=== PATIENT | male | born 1990 | race African-American/Black ===

== ENCOUNTER 2016-06-15 10:14 | Emergency (ER) | payer OTHER ==
[~2016-06-15] VITALS: Ht 177.8 cm; Wt 102.1 kg
[2016-06-15] MEDS ORDERED: MEDROL4 M2 PO (11:25)
[2016-06-15] MEDS ORDERED: ROBAXIN500 M1 PO (11:25)
--- NOTE | 2016-06-15 11:25 | ED NECK/BACK PAIN COMPLAINT ---
History of Present Illness General Chief Complaint: Low Back Pain/Injury Stated Complaint: LOWER BACK PAIN Source: patient Exam Limitations: no limitations Vital Signs & Intake/Output Vital Signs & Intake/Output Vital Signs Date Time Temp Pulse Resp B/P Pulse O2 O2 Flow FiO2 Ox Delivery Rate 06/15 1021 98.0 98 20 180/140 97 Room Air Allergies Coded Allergies: No Known Allergies (06/15/16) Reconcile Medications Methocarbamol (Robaxin) 500 MG TABLET 1 TAB PO TID PRN muscle spasms Methylprednisolone. (Medrol) 4 MG TAB.DS.PK 1 DP PO AD back pain, inflammation 6 on day 1 then reduce by one tablet daily until gone Triage Note: PT TO ED C/O RIGHT LOWER BACK PAIN X 2 MONTHS. WORSE RECENTLY, RADIATING "TO MY SPINE". WORSE AT NIGHT. HAS NOT TRIED OTC MEDS. DENIES ANY INJURY. Triage Nurses Notes Reviewed? yes Onset: Gradual Duration: 2 months Timing: recent history Quality/Severity: moderate Location: lumbar spine, paraspinous muscles Radiation: right hip Context: unknown Method of Injury: unknown Loss of Consciousness: no loss of consciousness Modifying Factors: movement HPI: Patient is a 26-year-old male presenting to the emergency Department chief complaint of right low back pain mostly going on for the past 2 months. Pain is achy throbbing and spasming in nature. Currently moderate. Worse at nighttime. Denies any trauma or falls. No recent heavy lifting. Pain occasionally radiates into the right hip area. Denies any urinary incontinence or retention. No numbness or tingling. Denies any lower extremity weakness. Denies any hematuria. No history kidney stones. Denies nausea vomiting fevers or chills chest pain or shortness of breath. No change in weight. Denies abdominal pain. Past History Travel History Traveled to [place] past 21 day No Medical History Any Pertinent Medical History? see below for history Cardiovascular: hypertension Surgical History Surgical History: non-contributory Psychosocial History What is your primary language Maltese Tobacco Use: Quit <30 days ago ETOH Use: heavy use Illicit Drug Use: denies illicit drug use Family History Hx Contributory? No Review of Systems Review of Systems Constitutional: Reports: no symptoms. Comments Review of systems: See HPI, All other systems negative. Constitutional, no chills fever or weight loss HEENT: No visual changes no sore throat no congestion Cardiovascular: No chest pain ,palpitation Skin, no jaundice no rashes Respiratory: No dyspnea cough sputum or hemoptysis GI: No nausea no vomiting : No dysuria No hematuria Muscle skeletal: no neck pain, Neurologic: No numbness no [place] Psych: No stress anxiety or depression,. Heme/endocrine: No bruising no bleeding no polyuria or polydipsia Immunology: No splenectomy or history of AIDS Physical Exam Physical Exam General Appearance: well developed/nourished, no apparent distress, alert, awake , comfortable Neck: normal inspection, supple, full range of motion, normal alignment Comments: Well-developed well-nourished person in no acute distress HEENT: Pupils equally round and reactive to light and accommodation. Nose is atraumatic. Neck: Supple, no lymphadenopathy, normal range of motion without pain or tenderness, no C-spine tenderness. Back: Tender to palpation over the right sacroiliac joint, mild muscle spasm present. Negative straight leg raise bilaterally. Full range of motion. Cardiovascular: Regular rate and rhythms no murmurs rubs or gallops, normal JVP Respiratory: Chest nontender. No respiratory distress.breath sounds clear to auscultation bilaterally Extremity: No edema, no calf tenderness to palpation, distal pulses are 2+ bilaterally. Full range of motion of lower extremity is without difficulty or pain. Muscular strength is 5 out of 5 in upper and lower bilaterally. Neuro: Alert oriented x3, motor sensory normal, patellar reflexes are 2+ bilaterally. Skin: No appreciable rash on exposed skin, skin is warm and dry. Psych: Mood and affect is normal, memory and judgment is normal. Progress Differential Diagnosis: cauda equina syn, herniated disc, myofascial strain, sciatica, T/L spine injury Plan of Care: No bony tenderness to palpation throughout entire spine. Patient reports symptoms have been going on for the past 2 months. Likely muscle strain, considering sacroiliitis or potentially some type of nerve pain that radiates into the hip. Patient will be treated symptomatically with Medrol dose pack and Flexeril. He was given orthopedics to follow up with if symptoms persist. No signs of cauda equina. Neuro- vascularly intact. Comments: Declines pain medication here in the emergency department. 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 Departure Departure Time of Disposition: 1122 Disposition: HOME OR SELF CARE Condition: Stable Clinical Impression Primary Impression: Back strain Qualifiers: Encounter type: initial encounter Qualified Code: S39.012A - Strain of muscle, fascia and tendon of lower back, initial encounter Referrals: [facility] PATIENT HAS NO PRIMARY CARE DR (PCP/Family) FRAN WORTHINGTON,ARCADIO Talley Additional Instructions: Follow-up with your primary care physician also follow up with orthopedics if symptoms persist. Use Medrol Dosepak as prescribed to help with inflammation, take Flexeril as prescribed at nighttime to help with muscle spasms. Avoid heavy lifting. Return for worsening symptoms or concerns. Try to reduce or quit smoking and drinking. Departure Forms: Customer Survey General Discharge Information Prescriptions: Current Visit Scripts Methocarbamol (Robaxin) 1 TAB PO TID PRN muscle spasms #20 TAB Methylprednisolone. (Medrol) 1 DP PO AD #1 DP 6 on day 1 then reduce by one tablet daily until gone
== END 2016-06-15 11:33 ==
LOC: ERH 10:14
DX: S39.012A Strain of muscle, fascia and tendon of lower back, initial encounter (principal); X58.XXXA Exposure to other specified factors, initial encounter; Y92.9 Unspecified place or not applicable; Y93.9 Activity, unspecified

== ENCOUNTER 2017-11-11 09:48 | Emergency (ER) | payer OTHER ==
[~2017-11-11] VITALS: Ht 177.8 cm; Wt 102.1 kg
[~2017-11-11 09:48] MED LIST: MEDROL4 M2 PO; ROBAXIN500 M1 PO
[2017-11-11 10:06] VITALS: BP 169/92
[2017-11-11 11:27] LABS: ABSOLUTE BASOPHIL COUNT 0 /CUMM (0.0-0.2); ABSOLUTE EOSINOPHIL COUNT 0.1 /CUMM (0.0-0.7); ABSOLUTE GRANULOCYTE CT 4.5 /CUMM (1.4-6.5); ABSOLUTE MONOCYTE COUNT 0.5 /CUMM (0.10-0.60); BASOPHIL % 0.2 % (0.0-2.0); EOSINOPHIL % 1.8 % (0-5); GRANULOCYTE % 63.3 % (42.2-75.2); HEMATOCRIT 47.5 % (42-52); MEAN PLATELET VOLUME 6.7 FL (7.4-10.4); PLATELET COUNT 353 /CUMM (130-400); RBC DISTRIBUTION WIDTH 13.4 % (11.5-14.5); RED BLOOD CELL CT 5.22 /CUMM (4.70-6.10); WHITE BLOOD CELL COUNT 7.2 /CUMM (4.8-10.8)
[2017-11-11 12:47] LABS: PT 11.1 SEC (9.4-12.5); PTT 33 SEC (25-37)
--- NOTE | 2017-11-11 13:56 | ED GI/GU/ABDOMINAL COMPLAINT ---
History of Present Illness General Chief Complaint: Abdominal Pain/Flank Pain Stated Complaint: ABD PAIN X 2 MNTHS Source: patient Exam Limitations: no limitations Vital Signs & Intake/Output Vital Signs & Intake/Output ED Intake and Output 11/12 0000 11/11 1200 Intake Total Output Total Balance Patient 225 lb Weight Weight Reported by Patient Measurement Method Allergies Coded Allergies: No Known Allergies (06/15/16) Reconcile Medications Cyclobenzaprine HCl 10 MG TABLET 1 TAB PO TID PRN PAIN Lisinopril 10 MG TABLET 1 TAB PO DAILY HEART (Reported) Triage Note: PT TO ED WITH C/O LEFT GROIN/HIP AREA AND RIGHT FLANK AREA PAIN X MONTHS "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 PAIN WORSE "IF I DO NOTHING". SEEN FOR THE SAME, GIVEN PAIN MEDS "DOESN'T WORK". THE ONLY THING THAT MAKES IT BETTER IF IF "I GO # 2, WHICH HAVE BEEN DARK IN COLOR". Triage Nurses Notes Reviewed? yes Onset: Gradual Duration: week(s): (2-3 MONTHS), changing over time, continues in ED, getting worse Timing: single episode today Quality/Severity: cramping, fullness Severity Numbers: 7 Location: groin, left flank Radiation: no radiation Activities at Onset: none, eating Prior Abdominal Problems: none Sexually Active: Yes No Modifying Factors: none Modifying Factors: Worsens With: movement, palpation. HPI: 27-year-old male with a history of hypertension present evaluation of groin pain. Patient reports he's been noticing pain in the left groin for the past 2 months. There is no trauma or triggering event. The pain is worse with movement. The pain seems to radiate from the left back and flank into the groin. He denies any urinary symptoms penile discharge testicular pain and swelling fevers abdominal pain chest pain shortness of breath numbness tingling or any other associated symptoms. Has not taken any medicine for this. (Judson King) Past History Travel History Traveled to [place] past 21 day No Medical History Any Pertinent Medical History? see below for history Neurological: NONE EENT: NONE Cardiovascular: hypertension Respiratory: NONE Gastrointestinal: GERD Hepatic: NONE Renal: NONE Musculoskeletal: NONE Psychiatric: NONE Endocrine: NONE Blood Disorders: NONE Cancer(s): NONE DEVELOPMENT PROFESSIONAL/Reproductive: NONE Surgical History Surgical History: non-contributory Psychosocial History What is your primary language Guyanese Tobacco Use: Current Daily Use Daily Tobacco Use Amount/Type: => 5 Cigarettes daily ETOH Use: occasional use Illicit Drug Use: denies illicit drug use Family History Hx Contributory? No (Judson King) Review of Systems Review of Systems Constitutional: Reports: no symptoms. EENTM: Reports: no symptoms. Respiratory: Reports: no symptoms. Cardiovascular: Reports: no symptoms. GI: Reports: no symptoms. Genitourinary: Reports: no symptoms. Musculoskeletal: Reports: see HPI, back pain, muscle pain, muscle stiffness. Skin: Reports: no symptoms. Neurological/Psychological: Reports: no symptoms. Hematologic/Endocrine: Reports: no symptoms. Immunologic/Allergic: Reports: no symptoms. All Other Systems: Reviewed and Negative (Judson King) Physical Exam Physical Exam General Appearance: well developed/nourished, no apparent distress, alert, awake Head: atraumatic, normal appearance Eyes: Bilateral: normal appearance, PERRL, EOMI. Ears, Nose, Throat, Mouth: hearing grossly normal, moist mucous membrane Neck: normal inspection, supple, full range of motion Respiratory: normal breath sounds, chest non-tender, no respiratory distress, lungs clear Cardiovascular: regular rate/rhythm, normal peripheral pulses Peripheral Pulses: 2+ radial (R), 2+ radial (L), 2+ femoral (R), 2+ femoral (L) Gastrointestinal: normal bowel sounds, soft, no organomegaly, tenderness (LEFT FLANK), TENDERNESS IN THE LEFT GROIN. nO LYMPHADENOPATHY NO BRUISING SWELLING OR ABRASIONS NO ERYTHEMA Back: normal inspection, normal range of motion, no vertebral tenderness, THERE IS TENDERNESS TO PALPATION OF THE LEFT SIDE LUMBAR PARASPINAL MUSCLES. nO MIDLINE TENDERNESS NO BRUISING SWELLING OR ABRASIONS NO cva TENDERNESS Extremities: normal range of motion, GROIN PAIN IS EXACERBATED BY RANGE OF MOTION OF THE LEFT HIP Neurologic/Psych: no motor/sensory deficits, awake, alert, oriented x 3, normal gait, normal mood/affect Skin: intact, normal color, warm/dry Core Measures ACS in differential dx? No Sepsis Present: No Sepsis Focused Exam Completed? No (Judson King) Progress Differential Diagnosis: appendicitis, biliary colic, bowel obstruction, colon cancer, cholecystitis, diverticulitis, hernia, STD, testicular torsion, ureterolithiasis, urinary retention, urethritis, UTI/pyelo, MUSCLE STRAIN Plan of Care: Orders Procedure Date/time Status Add-on Test (ER Only) 11/11 1307 Active Add-on Test (ER Only) 11/11 1229 Active MISTAKE 11/11 1229 Active Add-on Test (ER Only) 11/11 1226 Active ACETOMINOPHEN 11/11 112 Complete PARTIAL THROMBOPLASTIN TIME 11/12 1119 Complete PROTHROMBIN TIME 11/12 1119 Complete HEPATITIS PANEL 11/12 1119 Complete ETHANOL 11/11 112 Complete URINALYSIS 11/11 1099 Complete LIPASE 11/11 1100 Complete C-REACTIVE PROTEIN 11/11 1099 Complete COMPREHENSIVE METABOLIC PANEL 11/11 1099 Complete CBC WITHOUT DIFFERENTIAL 11/11 1099 Complete Laboratory Tests 11/11/17 112: Anion Gap 11, Estimated GFR > 60, BUN/Creatinine Ratio 20.0, Glucose 101 H, Calcium 10.0, Total Bilirubin 1.2, AST 96 H, ALT 127 H, Alkaline Phosphatase 116, C-Reactive Prot, Quant 3.0 H, Total Protein 8.2, Albumin 4.8, Globulin 3.4 , Albumin/Globulin Ratio 1.4, Lipase 39, PT 11.1, INR 1.02, APTT 33, CBC w Diff NO MAN DIFF REQ, RBC 5.22, MCV 91.0, MCH 31.0, MCHC 34.0, RDW 13.4, MPV 6.7 L, Gran % 63.3, Lymphocytes % 27.6, Monocytes % 7.1, Eosinophils % 1.8, Basophils % 0.2, Absolute Granulocytes 4.5, Absolute Lymphocytes 2.0, Absolute Monocytes 0.5 , Absolute Eosinophils 0.1, Absolute Basophils 0, Hepatitis A IgM Ab NONREACTIVE , Hep Bs Antigen NONREACTIVE, Hep B Core IgM Ab Conf NONREACTIVE, Hepatitis C Antibody NONREACTIVE, Acetaminophen < 10.0 L, Serum Alcohol < 10.0, Urine Color YEL, Urine Clarity CLEAR, Urine pH 7.0, Ur Specific [place] 1.025, Urine Protein 30 H, Urine Ketones TRACE H, Urine Nitrite NEG, Urine Bilirubin NEG, Urine Urobilinogen 1.0, Ur Leukocyte Esterase NEG, Ur Microscopic SEDIMENT EXAMINED, Urine RBC 1-3, Urine WBC 5-10 H, Urine Bacteria FEW H, Urine Mucus MOD H, Urine Hemoglobin NEG, Urine Glucose NEG Patient is here for evaluation of left groin pain. The pain is been present for 2 or 3 months now. The pain is reproducible with range of motion and palpation. There is no lymphadenopathy no testicular pain now urinary symptoms. Blood work was obtained and is unremarkable. A CT scan shows diffuse fatty liver and a umbilical hernia without any acute findings. Patient was medicated with Toradol and is feeling better. This may be a musculoskeletal issue. Patient was given a prescription for Flexeril and told to continue ibuprofen. Follow-up with primary care doctor. Discussed return precautions patient agrees the plan Diagnostic Imaging: Viewed by Me: CT Scan. Discussed w/RAD: CT Scan. Radiology Impression: PATIENT: ROXIE JAMISON PRESENT AGE: 27 PATIENT ACCOUNT NO: [id number] : 90 LOCATION: [facility] ORDERING PHYSICIAN: Judson WHITE SERVICE DATE: 11/11/17 EXAM TYPE: CAT - CT ABD & PELVIS W/O IV CONTRAS EXAMINATION: CT ABDOMEN AND PELVIS WITHOUT CONTRAST CLINICAL INFORMATION: Left groin pain and right lower back pain. Presumptive diagnosis of kidney stones. COMPARISON: None. TECHNIQUE: Multidetector volumetric imaging was performed from the superior aspect of the liver through the pubic symphysis. Sagittal and coronal reformatted images were obtained on the technologist workstation. DLP: 429.34 mGy-cm. FINDINGS: LUNG BASES: The visualized lung bases are unremarkable. LIVER, GALLBLADDER, AND BILIARY TREE: The liver is normal in size and shape and diffusely lower in attenuation compared to the spleen, consistent with hepatic steatosis. Geographic areas of focal fatty sparing is seen in the gallbladder fossa. No focal hepatic lesion on noncontrast imaging. No biliary ductal dilatation is present. The gallbladder is unremarkable with no evidence of radiopaque gallstones, gallbladder wall thickening, or obvious pericholecystic inflammatory changes. PANCREAS: Unremarkable on noncontrast imaging. SPLEEN: Unremarkable. ADRENAL GLANDS: Unremarkable on noncontrast imaging. KIDNEYS AND URETERS: The kidneys are normal in size, shape, and attenuation. No hydronephrosis, hydroureter, or calculi seen. No perinephric stranding. BLADDER: The bladder is decompressed and therefore not adequately assessed. No definite bladder calculi seen. No pericystic fat stranding or edema noted. PELVIC VISCERA: Unremarkable. GASTROINTESTINAL TRACT: The small and large bowel are unremarkable. The appendix is unremarkable. ABDOMINAL WALL: There is a small fat-containing umbilical hernia. LYMPH NODES, VASCULAR: Unremarkable. OSSEOUS STRUCTURES: Unremarkable. IMPRESSION: 1. No evidence of nephrolithiasis or obstructive uropathy. 2. Diffuse hepatic steatosis with geographic area of fatty sparing in the gallbladder fossa. 3. Small fat-containing umbilical hernia. DICTATED BY: Raegan Velasco MD DATE/TIME DICTATED:11/11/171421 SEED CLEANER OPERATOR:RENETTA DATE /TIME TRANSCRIBED:11/11/171421 CONFIDENTIAL, DO NOT COPY WITHOUT APPROPRIATE AUTHORIZATION. <Electronically signed in Other Vendor System> SIGNED BY: Raegan Velasco MD 11/11/17 1432 Initial ED EKG: none (Thai WHITE,Judson) Departure Departure Disposition: HOME OR SELF CARE Condition: Stable Clinical Impression Primary Impression: Groin pain, chronic, left Referrals: Morena WORTHINGTON,Surendra Issa MD,Kash Pickens MD,Jono PHAM MD,NAE Solorzano Patient Has No Primary Care Dr (PCP/Family) Additional Instructions: Make a follow-up appointment with ONE of the provided primary care doctors. Continue the proximal and 500 mg every 12 hours with food as needed for pain. Cyclobenzaprine as a muscle relaxer that can also be used every 8 hours as needed for pain this may cause drowsiness. It is very important that he follow up with somebody. YOU may need additional imaging or physical therapy. If your pain all of a sudden changes or worsens return immediately. Please go over all results of today's visit with your primary care doctor. Contact your primary care doctor to let them know you were here in the emergency room. There may be nonspecific findings which may not be related to your visit today here in the emergency room but may require further evaluation and chronic monitoring by your primary care doctor. If you had a laceration today the chance of foreign body always remains. You should follow-up with your primary care doctor for recheck in 3-5 days for a wound check. If you had an x-ray done there is a chance that a fracture could have been missed on initial read and you should follow-up with your primary care doctor for repeat x-rays if symptoms persist. If your blood pressure was elevated here in the emergency room please have rechecked by [facility] primary care doctor within the next 48. If you were prescribed a narcotic here in the emergency room or any type of controlled substances you're not allowed to drive while taking this medication or operate any type of heavy machinery. Narcotics can make you feel lightheaded dizziness nausea and can cause constipation. You may need to continuous pickling line pickler a stool softener. Thank you for choosing [facility] emergency room. Please return to the emergency room immediately if you have any other concerns worsening of symptoms. Departure Forms: Customer Survey General Discharge Information Prescriptions: Current Visit Scripts Cyclobenzaprine HCl 1 TAB PO TID PRN PAIN #30 TAB (Judson King) PA/GRAPHIC ARTIST Co-Sign Statement Statement: ED Attending supervision documentation- I saw and evaluated the patient. I have also reviewed all the pertinent lab results and diagnostic results. I agree with the findings and the plan of care as documented in the PA's/GRAPHIC ARTIST's documentation. x I have reviewed the ED Record and agree with the PA's/GRAPHIC ARTIST's documentation. [] Additions or exceptions (if any) to the PAs/GRAPHIC ARTIST's note and plan are summarized below: [] (Yakov WORTHINTGON,Orion)
--- NOTE | 2017-11-11 14:32 | CT SCAN REPORT ---
EXAMINATION: CT ABDOMEN AND PELVIS WITHOUT CONTRAST CLINICAL INFORMATION: Left groin pain and right lower back pain. Presumptive diagnosis of kidney stones. COMPARISON: None. TECHNIQUE: Multidetector volumetric imaging was performed from the superior aspect of the liver through the pubic symphysis. Sagittal and coronal reformatted images were obtained on the technologist workstation. DLP: 429.34 mGy-cm. FINDINGS: LUNG BASES: The visualized lung bases are unremarkable. LIVER, GALLBLADDER, AND BILIARY TREE: The liver is normal in size and shape and diffusely lower in attenuation compared to the spleen, consistent with hepatic steatosis. Geographic areas of focal fatty sparing is seen in the gallbladder fossa. No focal hepatic lesion on noncontrast imaging. No biliary ductal dilatation is present. The gallbladder is unremarkable with no evidence of radiopaque gallstones, gallbladder wall thickening, or obvious pericholecystic inflammatory changes. PANCREAS: Unremarkable on noncontrast imaging. SPLEEN: Unremarkable. ADRENAL GLANDS: Unremarkable on noncontrast imaging. KIDNEYS AND URETERS: The kidneys are normal in size, shape, and attenuation. No hydronephrosis, hydroureter, or calculi seen. No perinephric stranding. BLADDER: The bladder is decompressed and therefore not adequately assessed. No definite bladder calculi seen. No pericystic fat stranding or edema noted. PELVIC VISCERA: Unremarkable. GASTROINTESTINAL TRACT: The small and large bowel are unremarkable. The appendix is unremarkable. ABDOMINAL WALL: There is a small fat-containing umbilical hernia. LYMPH NODES, VASCULAR: Unremarkable. OSSEOUS STRUCTURES: Unremarkable. IMPRESSION: 1. No evidence of nephrolithiasis or obstructive uropathy. 2. Diffuse hepatic steatosis with geographic area of fatty sparing in the gallbladder fossa. 3. Small fat-containing umbilical hernia.
[2017-11-11] MEDS ORDERED: LISINOPRIL10 M1 PO (14:51)
[2017-11-11] MEDS ORDERED: CYCLOBENZAPRINE10 M1 PO (15:02)
== END 2017-11-11 15:19 ==
LOC: ERH 09:48
PROVIDERS: Physician Assistant Medical
DX: R10.32 Left lower quadrant pain (principal); I10 Essential (primary) hypertension; Z72.89 Other problems related to lifestyle; F17.210 Nicotine dependence, cigarettes, uncomplicated
CPT/HCPCS: 74176; 81001; G0480